=== PATIENT | female | born 1985 ===

== ENCOUNTER → 2023-07-25 11:00 | Outpatient (CLI) | payer SELFPAY ==
[2023-07-29 13:38] LABS: QuantiFERON Mitogen Value >10.00 IU/mL (.); QuantiFERON TB Gold Plus Negative (Negative)
== END ==
PROVIDERS: PCP Family Medicine; Visit Provider Family Medicine
DX: Z11.1 Encounter for screening for respiratory tuberculosis (principal)
CPT/HCPCS: 86480